=== PATIENT | male | born 1985 | race Caucasian/White ===

== ENCOUNTER 2019-12-18 09:07 | Emergency (ER) | payer SELFPAY ==
[2019-12-18 09:20] VITALS: BP 178/86; PULSE 91; RESP 18; TEMP 37.1; O2SAT 100
--- NOTE | 2019-12-18 09:27 | ED.UPPEXIN ---
HPI - Extremity Injury (Upper) General Chief Complaint: Extremity Injury, Upper Stated Complaint: right shoulder pain Time Seen by Provider: 12/18/19 09:27 Source: patient and RN notes reviewed Mode of arrival: ambulatory Limitations: no limitations History of Present Illness HPI narrative: 34-year-old male presents with concern for right shoulder injury. Reports yesterday he was carrying a large heavy rope over his shoulder, when the shoulder was moved in an awkward angle causing sudden pain to the joint. He reports using ice, ibuprofen with little relief. Reports throbbing at rest, sharp burning pain with range of motion. Denies inability to lift arm, decreased strength. Denies any direct trauma or blow to the shoulder. MD complaint: injury to: right and shoulder Other Extremity Injury: Right: shoulder Related Data Allergies Allergy/AdvReac Type Severity Reaction Status Date / Time No Known Allergies Allergy Mild Verified 12/18/19 09:28 Review of Systems Review of Systems: Narrative: CONSTITUTIONAL: Denies malaise, chills, sweats, or fever. CARDIOVASCULAR: Denies chest pain, palpitations, or edema. RESPIRATORY: Denies cough or dyspnea. SKIN: Denies bruising, redness MUSCULOSKELETAL: Reports right shoulder pain NEUROLOGIC: Denies numbness, weakness All systems reviewed & are unremarkable except as noted in HPI and below PMFSH Comments At time of signature, agree with nursing past medical, surgical, social and family history. There is no relevant family history pertinent to the presenting complaint Exam Narrative: Exam Narrative: GENERAL: Well-appearing, well-nourished, and in no acute distress. HEAD: Normocephalic, atraumatic. EYES: PERRLA, conjunctivae clear NECK: Supple. CHEST: Speaks in full sentences. No respiratory distress. HEART: Regular rate and rhythm. Normal and equal peripheral pulses. EXTREMITIES: Right arm, shoulder has normal sensation, no edema, limited range of motion. Right shoulder and left shoulder asymmetrical. 5/5 strength with shoulder abduction and abduction, right boat pilot strength decreased. No open wounds, no skin tenting, no devitalized tissue or atrophy, no trophic changes, no ecchymosis, no obvious deformity, alignment normal, rotator cuff tenderness, nearby joints and structures intact. Distal pulses palpable and equal bilaterally, skin warm, dry, pink. Capillary refill less than 3 seconds. SKIN: Warm, dry, no rash. NEURO: Alert and oriented x3. PSYCH: Normal mood and affect Course Course Emergency Course: Patient is aware of diagnosis, understands and agrees to treatment plan. Anticipatory guidance given. Patient agrees to follow-up as directed and is aware of reasons to seek care at the emergency department. Portions of this record may have been created with voice recognition software Vital Signs Vital signs: Vital Signs Temperature 98.7 F 12/18/19 09:20 Pulse Rate 91 12/18/19 09:20 Respiratory Rate 18 12/18/19 09:20 Blood Pressure 178/86 H 12/18/19 09:20 Pulse Oximetry 100 12/18/19 09:20 Temperature 98.7 F 12/18/19 09:20 Pulse Rate 91 12/18/19 09:20 Respiratory Rate 18 12/18/19 09:20 Blood Pressure 178/86 H 12/18/19 09:20 Pulse Oximetry 100 12/18/19 09:20 Reviewed. Pt has been instructed to follow up with his primary care provider within the next week regarding his elevated blood pressure today. MDM - Extremity Injury (Upper) MDM Narrative Medical decision making narrative: Patients injury and pain is consistent with musculoskeletal etiology. No signs of neurological or vascular compromise on exam. Compartments and tissues are soft without signs of compartment syndrome. Pain is felt appropriate for further evaluation on an outpatient basis. Critical Care Time Critical Care Time Critical Care Time: No Discharge Plan Discharge Clinical Impression: Injury of shoulder, right Qualifiers: Encounter type: initial encounter Qualified Code(s): S49.91
== END 2019-12-18 09:40 | disposition home or self-care (01) ==
PROVIDERS: Emergency Provider Nurse Practitioner
DX: S49.91XA Unspecified injury of right shoulder and upper arm, initial encounter (principal); X50.0XXA Overexertion from strenuous movement or load, initial encounter
CPT/HCPCS: 99213; G0463